=== PATIENT | male | born 1940 | race Caucasian/White ===

== ENCOUNTER 2016-03-30 09:25 | Outpatient (CLI) | payer MEDICARE, OTHER | END 2016-03-30 09:26 | disposition home or self-care (01) | DX: E11.9 Type 2 diabetes mellitus without complications (principal); E78.5 Hyperlipidemia, unspecified ==

== ENCOUNTER 2016-08-29 11:03 | Outpatient (CLI) | payer MEDICARE, OTHER ==
[2016-08-29 19:29] LABS: CALCIUM 9.3 mg/dL (8.5-10.3); POTASSIUM 4.6 mmol/L (3.5-5.0)
[2016-08-29 20:29] LABS: HEMOGLOBIN A1C 0.64 g/dL
== END 2016-08-29 23:59 | disposition home or self-care (01) ==
LOC: LAB.WCP 11:03
PROVIDERS: ATTEND Family Medicine
DX: Z12.5 Encounter for screening for malignant neoplasm of prostate (principal); E11.9 Type 2 diabetes mellitus without complications
CPT/HCPCS: 36415; 80048; 83036; G0103; 84153

== ENCOUNTER 2016-11-10 06:52 | Day surgery (SDC) | payer MEDICARE, OTHER ==
[2016-11-10] MEDS ORDERED: LACTATED RINGERS 1,000 ML IV ONE (07:15)
[2016-11-10] MEDS ORDERED: MIDAZOLAM 2 MG/2 ML VIAL IVP ONE (08:22)
[2016-11-10] MEDS ORDERED: fentaNYL 100 MCG/2 ML VIAL IVP ONE (08:22)
[2016-11-10 09:45] VITALS: BP 137/66
== END 2016-11-10 06:53 | disposition home or self-care (01) ==
LOC: SDS 06:52
PROVIDERS: ATTEND Surgery
PROC: 0DBL8ZX Excision of Transverse Colon, Via Natural or Artificial Opening Endoscopic, Diagnostic (ICD-10-PCS; 2016-11-10)
PROC: 0DBN8ZX Excision of Sigmoid Colon, Via Natural or Artificial Opening Endoscopic, Diagnostic (ICD-10-PCS; 2016-11-10)
PROC: 0DBK8ZX Excision of Ascending Colon, Via Natural or Artificial Opening Endoscopic, Diagnostic (ICD-10-PCS; principal; 2016-11-10 08:15)
DX: D12.3 Benign neoplasm of transverse colon (principal); K63.5 Polyp of colon; K57.30 Diverticulosis of large intestine without perforation or abscess without bleeding; K64.8 Other hemorrhoids; K63.89 Other specified diseases of intestine; E78.5 Hyperlipidemia, unspecified; K21.9 Gastro-esophageal reflux disease without esophagitis; I10 Essential (primary) hypertension; Z83.3 Family history of diabetes mellitus; Z79.82 Long term (current) use of aspirin; Z96.641 Presence of right artificial hip joint; Z95.2 Presence of prosthetic heart valve; Z98.42 Cataract extraction status, left eye; Z98.41 Cataract extraction status, right eye; Z87.891 Personal history of nicotine dependence
CPT/HCPCS: 45380; J7120

== ENCOUNTER 2017-02-16 07:51 | Outpatient (CLI) | payer MEDICARE, OTHER ==
[2017-02-16 08:21] LABS: CALCIUM 9.2 mg/dL (8.5-10.3); CREATININE 1.2 mg/dL (0.6-1.2); POTASSIUM 4.3 mmol/L (3.5-5.0)
[2017-02-16 08:46] LABS: HEMOGLOBIN A1C 0.68 g/dL
== END 2017-02-16 07:52 | disposition home or self-care (01) ==
LOC: LAB 07:51
PROVIDERS: ATTEND Family Medicine
DX: E11.9 Type 2 diabetes mellitus without complications (principal)
CPT/HCPCS: 36415; 80048; 82043; 83036

== ENCOUNTER 2017-05-15 07:17 | Outpatient (CLI) | payer MEDICARE, OTHER ==
[2017-05-15 13:36] LABS: BASOPHILS % (AUTO) 0.4 %; EOSINOPHILS # (AUTO) 0.2 10^3/uL (0.0-0.7); EOSINOPHILS % (AUTO) 1.9 %; HGB - HEMOGLOBIN 16.3 g/dL (14.0-18.0); LYMPHOCYTES # (AUTO) 1.8 10^3/uL (1.5-3.5); LYMPHOCYTES % (AUTO) 19.6 %; MEAN CORPUSCULAR HEMOGLOBIN 33.2 pg (27.0-31.0); MEAN CORPUSCULAR HGB CONC 35.1 g/dL (32.0-36.0); MEAN CORPUSCULAR VOLUME 94.4 fL (80.0-94.0); MEAN PLATELET VOLUME 8.8 fL (7.4-11.4); MONOCYTES # (AUTO) 0.9 10^3/uL (0.0-1.0); MONOCYTES % (AUTO) 9.8 %; NEUTROPHILS # (AUTO) 6.2 10^3/uL (1.5-6.6); NEUTROPHILS % (AUTO) 68.3 %; PLT - PLATELET COUNT 296 10^3/uL (130-450); RED BLOOD COUNT 4.92 10^6/uL (4.70-6.10); RED CELL DISTRIBUTION WIDTH 13.4 % (12.0-15.0); WHITE BLOOD COUNT 9.1 x10^3/uL (4.8-10.8)
[2017-05-15 13:46] LABS: CALCIUM 9.5 mg/dL (8.5-10.3); CREATININE 1.1 mg/dL (0.6-1.2)
[2017-05-15 13:55] LABS: CHOLESTEROL 118 mg/dL; HDL CHOLESTEROL 39 mg/dL; LDL CHOLESTEROL,CALCULATED 58 mg/dL; LDL/HDL RATIO 1.5 (<3.6); VLDL CHOLESTEROL 21 mg/dL
== END 2017-05-15 07:18 | disposition home or self-care (01) ==
LOC: LAB.WCP 07:17
PROVIDERS: ATTEND Internal Medicine Cardiovascular Disease
DX: E78.5 Hyperlipidemia, unspecified (principal); K27.9 Peptic ulcer, site unspecified, unspecified as acute or chronic, without hemorrhage or perforation; I10 Essential (primary) hypertension; D53.9 Nutritional anemia, unspecified
CPT/HCPCS: 36415; 80048; 80061; 83721; 85025

== ENCOUNTER 2017-11-20 08:40 | Outpatient (CLI) | payer MEDICARE, OTHER ==
[2017-11-20 12:44] LABS: ALBUMIN 3.9 g/dL (3.2-5.5); ALBUMIN/GLOBULIN RATIO 1.3 (1.0-2.2); BILIRUBIN,TOTAL 0.6 mg/dL (0.2-1.0); CALCIUM 9.3 mg/dL (8.5-10.3); CREATININE 1.1 mg/dL (0.6-1.2); TOTAL PROTEIN 6.9 g/dL (6.7-8.2)
[2017-11-20 13:45] LABS: HB2 TOTAL 16.1 g/dL; HEMOGLOBIN A1C 0.74 g/dL; HEMOGLOBIN A1C % 6.4 % (4.6-6.2)
== END 2017-11-20 08:41 | disposition home or self-care (01) ==
LOC: LAB.WCP 08:40
PROVIDERS: ATTEND Family Medicine
DX: E11.9 Type 2 diabetes mellitus without complications (principal)
CPT/HCPCS: 36415; 80053; 83036

== ENCOUNTER 2017-12-06 15:31 | Outpatient (CLI) | payer MEDICARE, OTHER ==
--- NOTE | 2017-12-07 18:27 | Ultrasound Report ---
Reason: CLAUDICATION BILATERAL Procedure Date: 12/06/2017 Accession Number: [id number] / [id number] Procedure: US - Duplex Lwr Ext Arterial Bilat CPT Code: FULL RESULT: EXAM: Bilateral Lower Extremity Arterial Doppler Ultrasound EXAM DATE: 12/06/2017 05:17 PM. CLINICAL HISTORY: Claudication bilateral. COMPARISON: None. TECHNIQUE: Real-time sonographic vascular imaging was performed by the technology analyst, utilizing color-flow, Doppler flow, and spectral analysis. Multiple in home sales representative static images were saved for review. FINDINGS: Study limited due to extensive vascular calcifications. Multiple segments are not seen including the right profunda femoral, left profunda femoral and distal superficial femoral arteries. Diffusely abnormal monophasic waveforms extending from the proximal right superficial femoral artery to the right ankle. Diffusely abnormal monophasic waveforms extending from the left common femoral to the ankle. RIGHT: RADIUS GRINDER: PSV: 214.0 cm/sec. Bi waveform. SFA Proximal: PSV: 103.4 cm/sec. [place] waveform. MSFA: PSV:24.5 cm/sec. [place] waveform. DSFA: PSV: 28.7 cm/sec. [place] waveform. PFA: PSV:Not seen. POP PSV 32.9 cm /sec, mon waveform. EDWARDO: PSV: 35.6 cm/sec. [place] waveform. PATTERN GATER: PSV: 44.0 cm/sec. [place] Waveform. Peroneal Distal: PSV: 42.5 cm/sec. [place] waveform. DPA: PSV: 25.8 Cm/sec. [place] Waveform. LEFT: RADIUS GRINDER: PSV: 35.6 cm/sec. [place] waveform. SFA Proximal: PSV: 88.8 cm/sec. [place] waveform. MSFA: PSV: 13.2 cm/sec. [place] waveform. DSFA: PSV: Not seen. PFA: PSV: Not seen. POP: PSV: 48.6 cm /sec, mono waveform. EDWARDO: PSV: 32.7 cm/sec. [place] waveform. PATTERN GATER: PSV: 32.2 Cm/sec. [place] Waveform. Peroneal Distal: PSV: 35.3 cm/sec. [place] waveform. DPA: PSV: 35.3 Cm/sec. [place] Waveform. IMPRESSION: 1. No focal stenosis is identified on the imaged vessels. Diffuse atheromatous calcified plaques are noted in image vessels. 2. Extensive abnormal bilateral monophasic waveforms extending from the right proximal superficial femoral artery to the ankle and left common femoral artery to the ankle. Findings are suggestive of a more proximal stenosis. This could be better evaluated with CT angiogram with runoff or angiogram as necessary. RADIA
== END 2017-12-06 15:32 | disposition home or self-care (01) ==
LOC: DI 15:31
PROVIDERS: ATTEND Family Medicine
DX: I73.9 Peripheral vascular disease, unspecified (principal)
CPT/HCPCS: 93925

== ENCOUNTER 2018-05-30 08:00 | Outpatient (CLI) | payer MEDICARE, OTHER ==
[2018-05-30 12:52] LABS: BASOPHILS # (AUTO) 0.1 10^3/uL (0.0-0.1); BASOPHILS % (AUTO) 0.9 %; EOSINOPHILS # (AUTO) 0.1 10^3/uL (0.0-0.7); EOSINOPHILS % (AUTO) 1.1 %; HGB - HEMOGLOBIN 15.1 g/dL (14.0-18.0); LYMPHOCYTES # (AUTO) 1.1 10^3/uL (1.5-3.5); LYMPHOCYTES % (AUTO) 14.2 %; MEAN CORPUSCULAR HEMOGLOBIN 33.9 pg (27.0-31.0); MEAN CORPUSCULAR HGB CONC 34.4 g/dL (32.0-36.0); MEAN CORPUSCULAR VOLUME 98.5 fL (80.0-94.0); MEAN PLATELET VOLUME 8.6 fL (7.4-11.4); MONOCYTES # (AUTO) 0.6 10^3/uL (0.0-1.0); MONOCYTES % (AUTO) 8.4 %; NEUTROPHILS # (AUTO) 5.7 10^3/uL (1.5-6.6); NEUTROPHILS % (AUTO) 75.4 %; PLT - PLATELET COUNT 290 10^3/uL (130-450); RED BLOOD COUNT 4.44 10^6/uL (4.70-6.10); RED CELL DISTRIBUTION WIDTH 13.4 % (12.0-15.0); WHITE BLOOD COUNT 7.6 x10^3/uL (4.8-10.8)
[2018-05-30 13:33] LABS: ALBUMIN/GLOBULIN RATIO 1.4 (1.0-2.2); ALKALINE PHOSPHATASE 39 IU/L (42-121); ALT ALANINE AMINOTRANSFERASE 41 IU/L (10-60); AST ASPARTATE AMINOTRANSFERASE 27 IU/L (10-42); BILIRUBIN,TOTAL 0.9 mg/dL (0.2-1.0); BUN - BLOOD UREA NITROGEN 18 mg/dL (6-20); CALCIUM 8.7 mg/dL (8.5-10.3); CARBON DIOXIDE - CO2 27 mmol/L (21-32); CHLORIDE 97 mmol/L (101-111); CHOL/HDL RATIO 3.3 (<5.0); CHOLESTEROL 127 mg/dL; CREATININE 1.1 mg/dL (0.6-1.2); GFR - MDRD 65 (>89); GLUCOSE 139 mg/dL (70-100); HDL CHOLESTEROL 39 mg/dL; LDL CHOLESTEROL,CALCULATED 64 mg/dL; LDL/HDL RATIO 1.6 (<3.6); SODIUM 131 mmol/L (135-145); TOTAL PROTEIN 6.9 g/dL (6.7-8.2); VLDL CHOLESTEROL 24 mg/dL
[2018-05-30 14:51] LABS: HB2 TOTAL 15.8 g/dL; HEMOGLOBIN A1C 0.66 g/dL
== END 2018-05-30 23:59 ==
LOC: LAB.WCP 08:00
PROVIDERS: ATTEND Family Medicine
DX: E11.9 Type 2 diabetes mellitus without complications (principal)
CPT/HCPCS: 36415; 80053; 80061; 82043; 83036; 83721; 84443; 85025

== ENCOUNTER 2019-01-01 07:00 | Outpatient (CLI) | payer MEDICARE, OTHER ==
[2019-01-01 12:47] LABS: CALCIUM 9.2 mg/dL (8.5-10.3); CREATININE 1.2 mg/dL (0.6-1.2)
[2019-01-01 13:22] LABS: CREATININE,URINE 145.8 mg/dL; MICROALBUM/CREATININE RATIO,UR 21.9 ug/mg (<30.0); MICROALBUMIN,URINE 3.2 mg/dL (0-300.0)
[2019-01-01 14:10] LABS: HB2 TOTAL 15.3 g/dL; HEMOGLOBIN A1C 0.67 g/dL; HEMOGLOBIN A1C % 6.2 % (4.6-6.2)
== END 2019-01-01 23:59 | disposition home or self-care (01) ==
LOC: LAB.WCP 07:00
PROVIDERS: ATTEND Family Medicine
DX: E11.9 Type 2 diabetes mellitus without complications (principal); Z12.5 Encounter for screening for malignant neoplasm of prostate
CPT/HCPCS: 36415; 80048; 82043; 82570; 83036; G0103; 84153

== ENCOUNTER 2019-11-06 08:00 | Outpatient (CLI) | payer MEDICARE, OTHER | END 2019-11-06 23:59 | disposition home or self-care (01) | LOC: LAB.R 08:00 | PROVIDERS: ATTEND Family Medicine | DX: R19.7 Diarrhea, unspecified (principal); Z20.828 Contact with and (suspected) exposure to other viral communicable diseases ==

== ENCOUNTER 2020-02-17 08:00 | Outpatient (CLI) | payer MEDICARE, OTHER ==
[2020-02-17 12:43] LABS: BASOPHILS # (AUTO) 0.1 10^3/uL (0.0-0.1); BASOPHILS % (AUTO) 0.9 %; EOSINOPHILS # (AUTO) 0.1 10^3/uL (0.0-0.7); EOSINOPHILS % (AUTO) 1.4 %; HGB - HEMOGLOBIN 15.7 g/dL (14.0-18.0); LYMPHOCYTES # (AUTO) 1.4 10^3/uL (1.5-3.5); LYMPHOCYTES % (AUTO) 21.2 %; MEAN CORPUSCULAR HEMOGLOBIN 33.2 pg (27.0-31.0); MEAN CORPUSCULAR HGB CONC 33.1 g/dL (32.0-36.0); MEAN CORPUSCULAR VOLUME 100.2 fL (80.0-94.0); MEAN PLATELET VOLUME 10.1 fL (7.4-11.4); MONOCYTES # (AUTO) 0.7 10^3/uL (0.0-1.0); MONOCYTES % (AUTO) 10.4 %; NEUTROPHILS # (AUTO) 4.3 10^3/uL (1.5-6.6); NEUTROPHILS % (AUTO) 65.6 %; PLT - PLATELET COUNT 312 10^3/uL (130-450); RED BLOOD COUNT 4.73 10^6/uL (4.70-6.10); RED CELL DISTRIBUTION WIDTH 13.1 % (12.0-15.0); WHITE BLOOD COUNT 6.5 x10^3/uL (4.8-10.8)
[2020-02-17 13:17] LABS: ALBUMIN 4.2 g/dL (3.2-5.5); ALBUMIN/GLOBULIN RATIO 1.3 (1.0-2.2); ALKALINE PHOSPHATASE 35 IU/L (42-121); ALT ALANINE AMINOTRANSFERASE 21 IU/L (10-60); AST ASPARTATE AMINOTRANSFERASE 15 IU/L (10-42); BILIRUBIN,TOTAL 1.1 mg/dL (0.2-1.0); BUN - BLOOD UREA NITROGEN 19 mg/dL (6-20); CALCIUM 9.8 mg/dL (8.5-10.3); CARBON DIOXIDE - CO2 28 mmol/L (21-32); CHLORIDE 98 mmol/L (101-111); CHOL/HDL RATIO 3.1 (<5.0); CHOLESTEROL 124 mg/dL; CREATININE 1.2 mg/dL (0.6-1.2); GLUCOSE 134 mg/dL (70-100); HDL CHOLESTEROL 40 mg/dL; LDL CHOLESTEROL,CALCULATED 65 mg/dL; LDL/HDL RATIO 1.6 (<3.6); SODIUM 137 mmol/L (135-145); TOTAL PROTEIN 7.4 g/dL (6.7-8.2); VLDL CHOLESTEROL 19 mg/dL
[2020-02-17 13:34] LABS: CREATININE,URINE 149.9 mg/dL; MICROALBUMIN,URINE 2.1 mg/dL (0-300.0)
[2020-02-17 14:01] LABS: HEMOGLOBIN A1c% 5.9 % (4.27-6.07)
== END 2020-02-17 23:59 | disposition home or self-care (01) ==
LOC: LAB.WCP 08:00
PROVIDERS: ATTEND Family Medicine
DX: E11.9 Type 2 diabetes mellitus without complications (principal); I10 Essential (primary) hypertension; E78.5 Hyperlipidemia, unspecified; E66.9 Obesity, unspecified
CPT/HCPCS: 36415; 80053; 80061; 82043; 82570; 83036; 83721; 84443; 85025

== ENCOUNTER 2020-03-26 09:27 | Day surgery (SDC) | payer MEDICARE, OTHER ==
[2020-03-26] MEDS ORDERED: LACTATED RINGERS 1,000 ML IV ONE (10:05)
[2020-03-26] MEDS ORDERED: MIDAZOLAM 2 MG/2 ML VIAL ONE ×2 (11:22→11:57)
[2020-03-26] MEDS ORDERED: fentaNYL 250 MCG/5 ML VIAL ONE (11:22)
[2020-03-26] MEDS ORDERED: LACTATED RINGERS 100 ML IV ONE (12:37)
[2020-03-26 13:10] VITALS: BP 135/73
--- OUTSIDE RECORDS SUMMARY | 2020-03-31 01:32 | EXTERNAL MEDICAL SUMMARY RPT | Continuity of Care Document ---
:1940 Demographics Phone Unavailable Preferred Language Botswanan Marital Status Unknown Gnosticist Affiliation Unknown Race Unknown Ethnic Group Unknown Author Organization [facility] Address [address] [place] [address] Phone Care Team Providers Name Role Phone Lawrence MCMAHAN, Unavailable Unavailable Lawrence Romero Unavailable Unavailable Problems date description facility 2020-01-14 00:00:00 Health-related behavior [facility] [place] [facility] 2020-01-14 00:00:00 Tobacco use and exposure [facility] 2020-01-14 00:00:00 Exercise [facility] 2020-01-14 00:00:00 Details of drug misuse behavior [facility] [place] [facility] 2020-01-14 00:00:00 Alcohol use [facility] [place] [facility] 2020-01-14 00:00:00 Tobacco smoking status [facility] [place] [facility] 2020-01-14 00:00:00 Total score? [facility] 2020-01-14 00:00:00 [facility] 2020-02-04 00:00:00 MICROALBUMIN/CREAT RATIO [facility] 2020-02-04 00:00:00 TSH WITH REFLEX TO FT4 [facility] [place] [facility] 2020-02-04 00:00:00 COMPREHENSIVE METABOLIC PANEL [facility] [place] [facility] 2020-02-04 00:00:00 LIPIDS SCREEN [facility] 2020-02-04 00:00:00 HGBA1C [facility] 2020-02-04 00:00:00 CBC W/Diff/Plt [facility] 2020-02-17 00:00 TYPE 2 DIABETES [facility] WITHOUT COMPLICATIONS 2020-02-17 00:00 [facility] 00:00 HYPERLIPIDEMIA, UNSPECIFIED [facility] 2020-02-17 00:00 ESSENTIAL (PRIMARY) [facility] HYPERTENSION 2020-02-17 08:00 TYPE 2 DIABETES [facility] WITHOUT COMPLICATIONS 2020-02-17 08:00 OBESITY, UNSPECIFIED [facility] 2020-02-17 08:00 HYPERLIPIDEMIA, UNSPECIFIED [facility] 2020-02-17 08:00 ESSENTIAL (PRIMARY) [facility] HYPERTENSION 2020-03-01 00:00:00 Health-related behavior [facility] [place] [facility] 2020-03-01 00:00:00 Tobacco use and exposure [facility] [place] [facility] 2020-03-01 00:00:00 Exercise [facility] [place] [facility] 2020-03-01 00:00:00 Details of drug misuse behavior [facility] [place] [facility] 2020-03-01 00:00:00 Alcohol use [facility] [place] [facility] 2020-03-01 00:00:00 Tobacco smoking status [facility] [place] [facility] 2020-03-01 00:00:00 Former smoker [facility] [place] [facility] Allergies date description facility NO KNOWN ALLERGIES [facility] CEPHALEXIN [facility] CODEINE [facility] HEXACHLOROPHENE [facility] KETOPROFEN [facility] [place] EXTRACT [facility] [id number] [facility] SULFA ANTIBIOTICS [facility] NO KNOWN ALLERGIES [facility] Medications date description facility 2020-01-14 00:00:[facility] [place] [facility] [place] [facility] 2020-01-14 00:00:00 NA SULFATE-K SULFATE-MG SULF [facility] [place] [facility] 2020-01-14 00:00:00 NA SULFATE-K SULFATE-MG SULF [facility] [place] [facility] 2020-03-01 00:00:00 null [facility] [place] [facility] 2020-03-01 00:00:00 null [facility] [place] [facility] 2020-03-01 00:00:00 GLUCOSE BLOOD [facility] [place] [facility] 2020-03-17 00:00[facility] [place] [facility] 2020-03-17 00:00:00 null [facility] [place] [facility] 2020-03-17 00:00:00 NA SULFATE-K SULFATE-MG SULF [facility] [place] [facility] 2020-03-17 00:00:00 NA SULFATE-K SULFATE-MG SULF [facility] [place] [facility] Procedures date description facility 2020-02-04 00:00:00 MICROALBUMIN/CREAT RAT[facility] [place] [facility] date description facility 2020-02-04 00:00:00 TSH WITH REFLEX TO FT4 [facility] [place] [facility] date description facility 2020-02-04 00:00:00 COMPREHENSIVE METABOLIC PANEL [facility] [place] [facility] date description facility 2020-02-04 00:00:00 LIPIDS SCREEN [facility] [place] [facility] date description facility 2020-02-04 00:00:00 HGBA1C [facility] [place] [facility] date description facility 2020-02-04 00:00:00 CBC W/Diff/Plt [facility] [place] [facility] date description facility 2020-02-04 00:00:00 [facility] [place] [facility] Results Social History date description facility 2020-01-14 00:00:00 Former smoker [facility] [place] [facility] date description facility 2020-03-01 00:00:00 Former smoker [facility] [place] [facility] Social History date description facility 2020-01-14 00:00:00 Former smoker [facility] [place] [facility] date description facility 2020-03-01 00:00:00 Former smoker [facility] [place] [facility] date description facility [id number]
== END 2020-03-26 09:28 | disposition home or self-care (01) ==
LOC: SDS 09:27
PROVIDERS: ATTEND Surgery
PROC: 0DBN8ZZ Excision of Sigmoid Colon, Via Natural or Artificial Opening Endoscopic (ICD-10-PCS; 2020-03-26)
PROC: 0DBP8ZZ Excision of Rectum, Via Natural or Artificial Opening Endoscopic (ICD-10-PCS; 2020-03-26)
PROC: 0DBM8ZZ Excision of Descending Colon, Via Natural or Artificial Opening Endoscopic (ICD-10-PCS; 2020-03-26)
PROC: 0DBK8ZZ Excision of Ascending Colon, Via Natural or Artificial Opening Endoscopic (ICD-10-PCS; principal; 2020-03-26 10:45)
DX: Z12.11 Encounter for screening for malignant neoplasm of colon (principal); D12.2 Benign neoplasm of ascending colon; D12.5 Benign neoplasm of sigmoid colon; K63.5 Polyp of colon; K62.1 Rectal polyp; K63.89 Other specified diseases of intestine; K57.30 Diverticulosis of large intestine without perforation or abscess without bleeding; E11.51 Type 2 diabetes mellitus with diabetic peripheral angiopathy without gangrene; Z79.84 Long term (current) use of oral hypoglycemic drugs; K21.9 Gastro-esophageal reflux disease without esophagitis
CPT/HCPCS: 45380; J3010; J7120; 88305

== ENCOUNTER 2020-08-30 08:00 | Outpatient (CLI) | payer MEDICARE, OTHER ==
[2020-08-30 12:02] LABS: BASOPHILS # (AUTO) 0.1 10^3/uL (0.0-0.1); BASOPHILS % (AUTO) 1.1 %; EOSINOPHILS # (AUTO) 0.2 10^3/uL (0.0-0.7); EOSINOPHILS % (AUTO) 2.6 %; HCT - HEMATOCRIT 45.3 % (42.0-52.0); LYMPHOCYTES # (AUTO) 1.6 10^3/uL (1.5-3.5); LYMPHOCYTES % (AUTO) 24.1 %; MEAN CORPUSCULAR HEMOGLOBIN 33.3 pg (27.0-31.0); MEAN CORPUSCULAR HGB CONC 33.1 g/dL (32.0-36.0); MEAN CORPUSCULAR VOLUME 100.7 fL (80.0-94.0); MEAN PLATELET VOLUME 10.6 fL (7.4-11.4); MONOCYTES # (AUTO) 0.6 10^3/uL (0.0-1.0); MONOCYTES % (AUTO) 9.7 %; NEUTROPHILS # (AUTO) 4.1 10^3/uL (1.5-6.6); PLT - PLATELET COUNT 278 10^3/uL (130-450); RED CELL DISTRIBUTION WIDTH 12.8 % (12.0-15.0); WHITE BLOOD COUNT 6.6 x10^3/uL (4.8-10.8)
[2020-08-30 12:07] LABS: CREATININE,URINE 87.7 mg/dL; MICROALBUM/CREATININE RATIO,UR 3.4 ug/mg (<30.0); MICROALBUMIN,URINE 0.3 mg/dL (0-300.0)
[2020-08-30 12:29] LABS: ALBUMIN 4.2 g/dL (3.2-5.5); ALBUMIN/GLOBULIN RATIO 1.4 (1.0-2.2); ALKALINE PHOSPHATASE 41 IU/L (42-121); ALT ALANINE AMINOTRANSFERASE 23 IU/L (10-60); AST ASPARTATE AMINOTRANSFERASE 17 IU/L (10-42); BILIRUBIN,TOTAL 0.8 mg/dL (0.2-1.0); BUN - BLOOD UREA NITROGEN 15 mg/dL (6-20); CALCIUM 9.7 mg/dL (8.5-10.3); CARBON DIOXIDE - CO2 30 mmol/L (21-32); CHLORIDE 100 mmol/L (101-111); CHOLESTEROL 112 mg/dL; CREATININE 1.2 mg/dL (0.6-1.2); GFR - MDRD 58 (>89); GLUCOSE 132 mg/dL (70-100); HDL CHOLESTEROL 37 mg/dL; LDL CHOLESTEROL,CALCULATED 59 mg/dL; LDL/HDL RATIO 1.6 (<3.6); POTASSIUM 4.6 mmol/L (3.5-5.0); SODIUM 139 mmol/L (135-145); TOTAL PROTEIN 7.1 g/dL (6.7-8.2); TRIGLYCERIDES 82 mg/dL; VLDL CHOLESTEROL 16 mg/dL
[2020-08-30 12:34] LABS: ESTIMATED AVERAGE GLUCOSE 120 mg/dL (70-100); HEMOGLOBIN A1c% 5.8 % (4.27-6.07)
== END 2020-08-30 23:59 | disposition home or self-care (01) ==
LOC: LAB.WCP 08:00
PROVIDERS: ATTEND Family Medicine
DX: E11.9 Type 2 diabetes mellitus without complications (principal)
CPT/HCPCS: 36415; 80053; 80061; 82043; 82570; 83036; 83721; 85025

== ENCOUNTER 2021-03-01 08:16 | Outpatient (CLI) | payer MEDICARE, OTHER ==
[2021-03-01 12:14] LABS: BASOPHILS # (AUTO) 0.1 10^3/uL (0.0-0.1); BASOPHILS % (AUTO) 1.1 %; EOSINOPHILS # (AUTO) 0.1 10^3/uL (0.0-0.7); EOSINOPHILS % (AUTO) 1.9 %; HCT - HEMATOCRIT 44.5 % (42.0-52.0); HGB - HEMOGLOBIN 14.8 g/dL (14.0-18.0); LYMPHOCYTES # (AUTO) 1.7 10^3/uL (1.5-3.5); LYMPHOCYTES % (AUTO) 23.3 %; MEAN CORPUSCULAR HEMOGLOBIN 33.9 pg (27.0-31.0); MEAN CORPUSCULAR HGB CONC 33.3 g/dL (32.0-36.0); MEAN CORPUSCULAR VOLUME 101.8 fL (80.0-94.0); MEAN PLATELET VOLUME 10.6 fL (7.4-11.4); MONOCYTES # (AUTO) 0.7 10^3/uL (0.0-1.0); MONOCYTES % (AUTO) 9.8 %; NEUTROPHILS # (AUTO) 4.7 10^3/uL (1.5-6.6); NEUTROPHILS % (AUTO) 63.4 %; PLT - PLATELET COUNT 297 10^3/uL (130-450); RED BLOOD COUNT 4.37 10^6/uL (4.70-6.10); RED CELL DISTRIBUTION WIDTH 12.7 % (12.0-15.0); WHITE BLOOD COUNT 7.4 x10^3/uL (4.8-10.8)
[2021-03-01 12:17] LABS: ALBUMIN 3.8 g/dL (3.2-5.5); ALBUMIN/GLOBULIN RATIO 1.2 (1.0-2.2); ALKALINE PHOSPHATASE 44 IU/L (42-121); ALT ALANINE AMINOTRANSFERASE 31 IU/L (10-60); AST ASPARTATE AMINOTRANSFERASE 18 IU/L (10-42); BILIRUBIN,TOTAL 1.1 mg/dL (0.2-1.0); BUN - BLOOD UREA NITROGEN 16 mg/dL (6-20); CALCIUM 9.4 mg/dL (8.5-10.3); CARBON DIOXIDE - CO2 28 mmol/L (21-32); CHLORIDE 98 mmol/L (101-111); CHOL/HDL RATIO 3.2 (<5.0); CHOLESTEROL 108 mg/dL; CREATININE 1.4 mg/dL (0.6-1.2); GFR - MDRD 49 (>89); GLUCOSE 139 mg/dL (70-100); HDL CHOLESTEROL 34 mg/dL; LDL CHOLESTEROL,CALCULATED 53 mg/dL; LDL/HDL RATIO 1.6 (<3.6); POTASSIUM 4.3 mmol/L (3.5-5.0); SODIUM 136 mmol/L (135-145); TOTAL PROTEIN 6.9 g/dL (6.7-8.2); TRIGLYCERIDES 103 mg/dL; VLDL CHOLESTEROL 21 mg/dL
[2021-03-01 12:23] LABS: THYROID STIMULATING HORMONE 5.13 uIU/mL (0.34-5.60)
[2021-03-01 12:24] LABS: ESTIMATED AVERAGE GLUCOSE 131 mg/dL (70-100); HEMOGLOBIN A1c% 6.2 % (4.27-6.07)
[2021-03-01 13:09] LABS: CREATININE,URINE 147.3 mg/dL; MICROALBUMIN,URINE 0.3 mg/dL (0-300.0)
== END 2021-03-01 23:59 | disposition home or self-care (01) ==
LOC: LAB.WCP 08:16
PROVIDERS: ATTEND Family Medicine
DX: E11.9 Type 2 diabetes mellitus without complications (principal)
CPT/HCPCS: 36415; 80053; 80061; 82043; 82570; 83036; 83721; 84443; 85025

== ENCOUNTER 2021-08-04 09:06 | Outpatient (CLI) | payer MEDICARE, OTHER ==
[2021-08-04 12:03] LABS: BASOPHILS # (AUTO) 0.1 10^3/uL (0.0-0.1); EOSINOPHILS # (AUTO) 0.1 10^3/uL (0.0-0.7); EOSINOPHILS % (AUTO) 1.4 %; HCT - HEMATOCRIT 45.7 % (42.0-52.0); HGB - HEMOGLOBIN 15.5 g/dL (14.0-18.0); LYMPHOCYTES # (AUTO) 1.3 10^3/uL (1.5-3.5); LYMPHOCYTES % (AUTO) 16.9 %; MEAN CORPUSCULAR HEMOGLOBIN 33.4 pg (27.0-31.0); MEAN CORPUSCULAR HGB CONC 33.9 g/dL (32.0-36.0); MEAN CORPUSCULAR VOLUME 98.5 fL (80.0-94.0); MEAN PLATELET VOLUME 10.9 fL (7.4-11.4); MONOCYTES # (AUTO) 0.8 10^3/uL (0.0-1.0); MONOCYTES % (AUTO) 10.9 %; NEUTROPHILS # (AUTO) 5.3 10^3/uL (1.5-6.6); NEUTROPHILS % (AUTO) 69.4 %; PLT - PLATELET COUNT 281 10^3/uL (130-450); RED BLOOD COUNT 4.64 10^6/uL (4.70-6.10); RED CELL DISTRIBUTION WIDTH 12.7 % (12.0-15.0); WHITE BLOOD COUNT 7.6 x10^3/uL (4.8-10.8)
[2021-08-04 12:34] LABS: ALBUMIN 4.2 g/dL (3.2-5.5); ALBUMIN/GLOBULIN RATIO 1.4 (1.0-2.2); ALKALINE PHOSPHATASE 40 IU/L (42-121); ALT ALANINE AMINOTRANSFERASE 29 IU/L (10-60); AST ASPARTATE AMINOTRANSFERASE 20 IU/L (10-42); BILIRUBIN,TOTAL 0.7 mg/dL (0.2-1.0); BUN - BLOOD UREA NITROGEN 17 mg/dL (6-20); CALCIUM 9.5 mg/dL (8.5-10.3); CARBON DIOXIDE - CO2 28 mmol/L (21-32); CHLORIDE 100 mmol/L (101-111); CHOL/HDL RATIO 3.4 (<5.0); CHOLESTEROL 122 mg/dL; CREATININE 1.3 mg/dL (0.6-1.2); GFR - MDRD 53 (>89); GLUCOSE 139 mg/dL (70-100); HDL CHOLESTEROL 36 mg/dL; LDL CHOLESTEROL,CALCULATED 64 mg/dL; LDL/HDL RATIO 1.8 (<3.6); POTASSIUM 4.5 mmol/L (3.5-5.0); SODIUM 137 mmol/L (135-145); TOTAL PROTEIN 7.1 g/dL (6.7-8.2); TRIGLYCERIDES 108 mg/dL; VLDL CHOLESTEROL 22 mg/dL
[2021-08-04 12:38] LABS: ESTIMATED AVERAGE GLUCOSE 128 mg/dL (70-100); HEMOGLOBIN A1c% 6.1 % (4.27-6.07)
== END 2021-08-04 09:07 | disposition home or self-care (01) ==
LOC: LAB.N 09:06
PROVIDERS: ATTEND Family Medicine
DX: E11.9 Type 2 diabetes mellitus without complications (principal)
CPT/HCPCS: 36415; 80053; 80061; 83036; 83721; 85025

== ENCOUNTER 2021-08-30 13:42 | Outpatient (CLI) | payer MEDICARE, OTHER | END 2021-08-30 13:43 | disposition home or self-care (01) | LOC: DI 13:42 | PROVIDERS: ATTEND Family Medicine | DX: I51.7 Cardiomegaly (principal); Z98.890 Other specified postprocedural states | CPT/HCPCS: 93306 ==

== ENCOUNTER 2022-02-24 10:07 | Outpatient (CLI) | payer MEDICARE, OTHER ==
[2022-02-24 12:29] LABS: BASOPHILS # (AUTO) 0.1 10^3/uL (0.0-0.1); BASOPHILS % (AUTO) 0.6 %; EOSINOPHILS # (AUTO) 0.1 10^3/uL (0.0-0.7); EOSINOPHILS % (AUTO) 1.2 %; HCT - HEMATOCRIT 44.8 % (42.0-52.0); HGB - HEMOGLOBIN 14.9 g/dL (14.0-18.0); LYMPHOCYTES % (AUTO) 10.9 %; MEAN CORPUSCULAR HGB CONC 33.3 g/dL (32.0-36.0); MEAN CORPUSCULAR VOLUME 99.1 fL (80.0-94.0); MEAN PLATELET VOLUME 9.9 fL (7.4-11.4); MONOCYTES % (AUTO) 10.5 %; NEUTROPHILS # (AUTO) 7.2 10^3/uL (1.5-6.6); NEUTROPHILS % (AUTO) 76.5 %; PLT - PLATELET COUNT 311 10^3/uL (130-450); RED BLOOD COUNT 4.52 10^6/uL (4.70-6.10); RED CELL DISTRIBUTION WIDTH 12.8 % (12.0-15.0); WHITE BLOOD COUNT 9.4 x10^3/uL (4.8-10.8)
[2022-02-24 12:39] LABS: CREATININE 1.3 mg/dL (0.6-1.2); POTASSIUM 4.1 mmol/L (3.5-5.0)
== END 2022-02-24 10:08 | disposition home or self-care (01) ==
LOC: LAB.N 10:07
PROVIDERS: ATTEND Nurse Practitioner Family
DX: N18.31 Chronic kidney disease, stage 3a (principal)
CPT/HCPCS: 36415; 80048; 85025

== ENCOUNTER 2022-08-22 08:16 | Outpatient (CLI) | payer MEDICARE, OTHER ==
[2022-08-22 11:49] LABS: BASOPHILS # (AUTO) 0.1 10^3/uL (0.0-0.1); BASOPHILS % (AUTO) 0.9 %; EOSINOPHILS # (AUTO) 0.1 10^3/uL (0.0-0.7); EOSINOPHILS % (AUTO) 1.6 %; HCT - HEMATOCRIT 45.5 % (42.0-52.0); HGB - HEMOGLOBIN 15.3 g/dL (14.0-18.0); LYMPHOCYTES # (AUTO) 1.4 10^3/uL (1.5-3.5); LYMPHOCYTES % (AUTO) 16.3 %; MEAN CORPUSCULAR HEMOGLOBIN 33.6 pg (27.0-31.0); MEAN CORPUSCULAR HGB CONC 33.6 g/dL (32.0-36.0); MEAN CORPUSCULAR VOLUME 99.8 fL (80.0-94.0); MONOCYTES # (AUTO) 0.9 10^3/uL (0.0-1.0); MONOCYTES % (AUTO) 10.4 %; NEUTROPHILS # (AUTO) 6.2 10^3/uL (1.5-6.6); NEUTROPHILS % (AUTO) 70.5 %; PLT - PLATELET COUNT 317 10^3/uL (130-450); RED BLOOD COUNT 4.56 10^6/uL (4.70-6.10); RED CELL DISTRIBUTION WIDTH 13.2 % (12.0-15.0); WHITE BLOOD COUNT 8.8 x10^3/uL (4.8-10.8)
[2022-08-22 12:05] LABS: ESTIMATED AVERAGE GLUCOSE 126 mg/dL (70-100)
[2022-08-22 12:13] LABS: ALBUMIN 4.1 g/dL (3.2-5.5); ALBUMIN/GLOBULIN RATIO 1.3 (1.0-2.2); ALKALINE PHOSPHATASE 44 IU/L (42-121); ALT ALANINE AMINOTRANSFERASE 28 IU/L (10-60); AST ASPARTATE AMINOTRANSFERASE 19 IU/L (10-42); BILIRUBIN,TOTAL 0.7 mg/dL (0.2-1.0); BUN - BLOOD UREA NITROGEN 23 mg/dL (6-20); CALCIUM 9.5 mg/dL (8.5-10.3); CARBON DIOXIDE - CO2 28 mmol/L (21-32); CHLORIDE 100 mmol/L (101-111); CHOL/HDL RATIO 3.5 (<5.0); CHOLESTEROL 121 mg/dL; CREATININE 1.4 mg/dL (0.6-1.2); GFR - MDRD 49 (>89); GLUCOSE 144 mg/dL (70-100); HDL CHOLESTEROL 35 mg/dL; LDL CHOLESTEROL,CALCULATED 66 mg/dL; LDL/HDL RATIO 1.9 (<3.6); POTASSIUM 4.4 mmol/L (3.5-5.0); SODIUM 137 mmol/L (135-145); TOTAL PROTEIN 7.2 g/dL (6.7-8.2); TRIGLYCERIDES 102 mg/dL; VLDL CHOLESTEROL 20 mg/dL
[2022-08-22 12:14] LABS: CREATININE,URINE 153.9 mg/dL; MICROALBUM/CREATININE RATIO,UR 3.2 ug/mg (<30.0); MICROALBUMIN,URINE 0.5 mg/dL (0-300.0)
[2022-08-22 12:16] LABS: THYROID STIMULATING HORMONE 3.24 uIU/mL (0.34-5.60)
== END 2022-08-22 08:17 | disposition home or self-care (01) ==
LOC: LAB.N 08:16
PROVIDERS: ATTEND Family Medicine
DX: I12.9 Hypertensive chronic kidney disease with stage 1 through stage 4 chronic kidney disease, or unspecified chronic kidney disease (principal); E11.22 Type 2 diabetes mellitus with diabetic chronic kidney disease
CPT/HCPCS: 36415; 80053; 80061; 82043; 82570; 83036; 83721; 84443; 85025

== ENCOUNTER 2022-08-31 11:40 | Outpatient (CLI) | payer MEDICARE, OTHER | END 2022-08-31 11:41 | disposition home or self-care (01) | LOC: DI 11:40 | PROVIDERS: ATTEND Internal Medicine Cardiovascular Disease | DX: I50.9 Heart failure, unspecified (principal); Z95.2 Presence of prosthetic heart valve; I51.7 Cardiomegaly | CPT/HCPCS: 93306 ==

== ENCOUNTER 2023-08-29 08:20 | Outpatient (CLI) | payer MEDICARE, OTHER ==
[2023-08-29 12:25] LABS: BASOPHILS % (AUTO) 0.5 %; EOSINOPHILS # (AUTO) 0.1 10^3/uL (0.0-0.7); EOSINOPHILS % (AUTO) 1.1 %; HCT - HEMATOCRIT 45.2 % (42.0-52.0); HGB - HEMOGLOBIN 15.4 g/dL (14.0-18.0); LYMPHOCYTES # (AUTO) 1.1 10^3/uL (1.5-3.5); LYMPHOCYTES % (AUTO) 14.7 %; MEAN CORPUSCULAR HEMOGLOBIN 32.5 pg (27.0-31.0); MEAN CORPUSCULAR HGB CONC 34.1 g/dL (32.0-36.0); MEAN CORPUSCULAR VOLUME 95.4 fL (80.0-94.0); MEAN PLATELET VOLUME 10.2 fL (7.4-11.4); MONOCYTES # (AUTO) 0.9 10^3/uL (0.0-1.0); MONOCYTES % (AUTO) 11.5 %; NEUTROPHILS # (AUTO) 5.3 10^3/uL (1.5-6.6); NEUTROPHILS % (AUTO) 71.8 %; PLT - PLATELET COUNT 333 10^3/uL (130-450); RED BLOOD COUNT 4.74 10^6/uL (4.70-6.10); RED CELL DISTRIBUTION WIDTH 12.6 % (12.0-15.0); WHITE BLOOD COUNT 7.4 x10^3/uL (4.8-10.8)
[2023-08-29 12:45] LABS: CHOL/HDL RATIO 3.9 (<5.0); CHOLESTEROL 124 mg/dL; HDL CHOLESTEROL 32 mg/dL; LDL CHOLESTEROL,CALCULATED 70 mg/dL; LDL/HDL RATIO 2.2 (<3.6); TRIGLYCERIDES 112 mg/dL (48-352); VLDL CHOLESTEROL 22 mg/dL
[2023-08-29 12:56] LABS: THYROID STIMULATING HORMONE 2.38 uIU/mL (0.34-5.60)
[2023-08-29 13:15] LABS: ESTIMATED AVERAGE GLUCOSE 131 mg/dL (70-100); HEMOGLOBIN A1c% 6.2 % (4.27-6.07)
== END 2023-08-29 08:21 | disposition home or self-care (01) ==
LOC: LAB.N 08:20
PROVIDERS: ATTEND Nurse Practitioner Family
DX: I12.9 Hypertensive chronic kidney disease with stage 1 through stage 4 chronic kidney disease, or unspecified chronic kidney disease (principal); E11.22 Type 2 diabetes mellitus with diabetic chronic kidney disease; E78.5 Hyperlipidemia, unspecified
CPT/HCPCS: 36415; 80061; 82607; 82746; 83036; 83721; 84443; 85025